=== PATIENT | female | born 2000 | race African-American/Black ===

== ENCOUNTER 2022-10-11 09:32 | Emergency (ER) | payer MEDICAID, OTHER | END 2022-10-11 09:55 | disposition home or self-care (01) | LOC: MADERS 09:32 | DX: J11.1 Influenza due to unidentified influenza virus with other respiratory manifestations (principal) | CPT/HCPCS: 99283 ==

== ENCOUNTER 2022-10-13 09:56 | Emergency (ER) | payer MEDICAID | END 2022-10-13 11:22 | disposition home or self-care (01) | LOC: MADERS 09:56 | DX: J06.9 Acute upper respiratory infection, unspecified (principal); Z20.822 Contact with and (suspected) exposure to COVID-19 | CPT/HCPCS: 87081; 87430; 87804; 99283; U0003; U0005 ==